=== PATIENT | female | born 1950 | race Caucasian/White ===

== ENCOUNTER 2024-07-17 18:48 | Emergency (ER) | payer MEDICARE, OTHER, SELFPAY ==
[2024-07-17] VITALS (11 sets, daily range): BP systolic 71–144; BP diastolic 33–74; BMI 40.8
--- NOTE | 2024-07-17 18:56 | ED.GENMED ---
History of Present Illness
General
Chief Complaint: Abdominal Symptoms
Time Seen by Provider: 07/17/24 18:56
History of Present Illness
History of Present Illness:
TIME OF INITIAL ENCOUNTER: 6:58 PM
HPI: Patient came in by ambulance from [facility]. She came in due to left-sided abdominal pain. She was given 25 mcg of fentanyl IV prior to arrival. This is associated with nausea and vomiting without diarrhea. She notes that she has had
a cholecystectomy but is not sure if she has had an appendectomy. She has had bowel obstruction in the past. She did have a colostomy at 1 point which was reversed. She reports having adrenal insufficiency as well. She states she has been to
both [facility] in the past
EXAM:
GENERAL: Chronically ill-appearing
HEENT: Slightly dry oral mucosa
CARDIOVASCULAR: No murmurs, normal heart rate, regular rhythm, No chest wall tenderness
PULMONARY: No respiratory distress, breath sounds are clear and equal
ABDOMEN: Soft with borderline peritoneal signs, moderate left-sided abdominal tenderness
NEUROLOGIC: Fair strength all extremities, no coordination deficits
PSYCHIATRIC: Appropriate mental status, normal insight and judgement
EXTREMITIES: Lymphedema noted to the lower extremities, wound noted to the right distal lower extremity which has been dressed and reportedly was seen by explosive ordnance specialist today and 'looked good'
SKIN: Scattered areas of ecchymosis and skin breakdown
NUMBER AND COMPLEXITY OF PROBLEMS ADDRESSED AT THE ENCOUNTER
� Chronic conditions affecting care: Has had bowel obstructions in the past, had cholecystectomy, adrenal insufficiency, thyroid disease, diabetes insipidus
� Acute Exacerbation and/or Progression of Chronic Illness: This is an acute problem
� Differential Diagnosis includes: Bowel obstruction, mesenteric ischemia, diverticulitis, adrenal insufficiency
AMOUNT AND/OR COMPLEXITY OF DATA TO BE REVIEWED AND ANALYZED
� I performed an independent evaluation of and my interpretation is:
EKG: Sinus 105, right bundle branch block with associated ST abnormality
CT: CT shows evidence of 8 x 12 cm area of free air and stool anterior to the descending colon
X-rays: I personally reviewed x-ray which shows the tip of the nasogastric tube below the diaphragm
Laboratory Studies: White count 8.4, hemoglobin 11.1, chemistries unremarkable but lactic is 2.3, lipase is normal
Other:
� Review of other/old records: No old records available for review in [facility]
� Clinical information was obtained by an independent historian: I spoke to friend at bedside
� Prescriptions/Medications Considered but not given:
� Further testing considered but not performed:
RISK OF COMPLICATIONS AND/OR MORBIDITY OR MORTALITY OF PATIENT MANAGEMENT
� Social determinants of health affecting care: Resides at [facility]
� Discussion with other providers: See below
� Escalation of care including admission/observation vs risk of discharge considered: The patient initially had systolics in the low 100 range but shortly after arrival without intervention her systolics were in the 70s. As she
reports a history of adrenal insufficiency, I have ordered 100 mg of hydrocortisone in addition to saline. Will also treat pain with narcotic analgesia and give Zofran.
ANY OTHER UPDATES:
I spoke to Dr. Wilson upon my initial evaluation of the CT report. Dr. Wilson recommended transfer to [facility]. I spoke to Dr. Siegel at [facility] who does not accept in transfer without a bedside evaluation by Dr. Wilson. Dr. Wilson
recommended transfer to [place]. Dr. Radha weber at [facility] accepts to his service.
Patient's BP has improved after hydrocortisone was given. Also planning to place NG tube in addition to additional fluids and Zosyn.
I personally placed the NG tube after the nurses were unable to successfully pass the tube. Tubing is noted to extend below the diaphragm however there was not significant output. There was not significant contents in the stomach on CT imaging.
12 AM: Still no beds available at [facility]
1:15 AM: Patient transported to [facility]
Phy Exam
Physical Exam
Physical Exam:
See HPI
Course
Orders/Labs/Results
Orders:
Orders
04/16/25 18:56
Electrocardiogram (*1) Urgent
Reason for Study: Fatigue / Weakness
EKG- Treatment ONCE
07/17/24 19:04
Hydrocortisone Sod Succinate [Solu-Cortef] 100 mg IV NOW STA
07/17/24 19:05
CT Abd/pelvis W Iv Cont Urgent
Comment:
Reason For Exam: L abd pain; prior bowel obstruction
07/17/24 19:06
0.9% Sodium Chloride 1000 ml [Nss] 1,000 ml IV BOLUS
HYDROmorphone [Dilaudid] 0.5 mg IV NOW STA
Ondansetron Injectable [Zofran] 4 mg IV NOW STA
07/17/24 19:32
Complete Blood Count/With Diff Urgent
Comprehensive Metabolic Panel Urgent
Cortisol, Random Urgent
Free T4 Urgent
Lactic Acid Urgent
Lipase Urgent
Manual Differential Urgent
TSH Reflex To Free T4 Urgent
Blood Culture Q30M
NANCY Source: Blood/Venous
Specimen Description:
07/17/24 20:04
Blood Culture Q30M
NANCY Source: Blood/Venous
Specimen Description:
07/17/24 21:41
Ondansetron Injectable [Zofran] 4 mg IV NOW STA
07/17/24 21:42
Furosemide [Lasix] 20 mg IV NOW STA
07/17/24 22:32
NG Tube [GI tube insertion- Treatment] ONCE
Piperacillin/Tazo 3.375 Gram [Zosyn] 3.375 gram in 50 ml IV NOW
07/17/24 22:33
0.9% Sodium Chloride 1000 ml [Nss] 1,000 ml IV BOLUS
07/17/24 23:31
Lidocaine 2% [Lidocaine Uro-Jet 2%] 1 syringe .ROUTE .STK-MED ONE
07/17/24 23:48
CR Chest Portable - 1 View Urgent
Comment:
Reason For Exam: s/p NG tube insertion
Reason Study Needs to be Portable: Unable to Transport
07/18/24 00:03
HYDROmorphone [Dilaudid] 0.5 mg IV NOW STA
Prochlorperazine [Compazine] 10 mg IV NOW STA
CR Chest Portable - 1 View Urgent
Comment:
Reason For Exam: NG tube insertion
Reason Study Needs to be Portable: Unable to Transport
Abnormal Lab Results
07/17/24
19:32
Hgb 11.1 L g/dL
(12.0-16.0)
Hct 36.5 L %
(37.0-47.0)
MCV 79.2 L fL
(81.0-99.0)
MCH 24.1 L pg
(27.0-31.0)
MCHC 30.4 L g/dL
(33.0-37.0)
RDW 18.8 H %
(11.5-14.5)
Band Neutrophils 4 H %
(0-3)
Lactic Acid 2.3 H mmol/L
(0.7-2.0)
Total Protein 5.6 L g/dl
(6.3-8.2)
TSH (Reflex) 0.03 L uIU/ml
(0.47-4.68)
07/17/24 19:32
07/17/24 19:32
Vital Signs
Initial and Last Documented VS:
Initial Vital Signs
Temp
37.1 C
07/17/24 18:50
Last Documented Vital Signs
Temp Pulse Resp BP Pulse Ox
37.1 C 124 19 91/61 97
07/17/24 18:50 07/18/24 01:00 07/18/24 01:00 07/18/24 01:00 07/18/24 00:15
*Critical Care Note
Total Time (30-74mins, 75-104mins- exclusive of procedures): 45min
comment:
The patient was found to have a bowel perforation. She was emergently given IV fluids and aggressive antibiotics. Multiple reassessments. I spoke to several surgeons to help arrange definitive care. Heart rate has remained elevated. Blood
pressure transiently low but improved with fluids and hydrocortisone.
ED Attending Note
-
Portions of this chart may have been created with voice recognition software.� Occasional wrong word or��sound alike� substitutions may have occurred due to the inherent limitations of voice recognition software.
Discharge Plan
Departure
Patient Disposition: [facility]
Date of Disposition: 07/17/24
Time of Disposition: 23:15
Discharge Problem:
Bowel perforation
Prescriptions:
No Action
fluticasone propion-salmeterol 250-50 mcg/dose Blister With Device
1 inh INHALATION R BID
acetaminophen 325 mg Tablet
650 mg PO Q4HPRN PRN (Reason: mild pain)
prednisone 10 mg Tablet
10 mg PO DAILY
polyethylene glycol 3350 [GlycoLax] 17 gram Powder In Packet
17 g PO DAILY
levalbuterol HCl 0.63 mg/3 mL Solution For Nebulization
0.63 mg INHALATION R Q6HPRN PRN (Reason: sob)
famotidine 40 mg Tablet
40 mg PO DAILY
omeprazole 40 mg Capsule,Delayed Release(Dr/Ec)
40 mg PO BID
ondansetron 8 mg Tablet,Disintegrating
8 mg PO Q8HPRN PRN (Reason: nausea)
hydrocortisone sod succinate [Solu-Cortef] 100 mg Recon Soln
100 mg IM DAILYPRN PRN (Reason: adrenal insufficiency)
magnesium hydroxide [Milk of Magnesia] 400 mg/5 mL Suspension
30 ml PO DAILYPRN PRN (Reason: 9 shifts no bm)
diltiazem HCl 120 mg Capsule,Extended Release 24hr
120 mg PO DAILY
bisacodyl [Dulcolax (bisacodyl)] 10 mg Suppository
10 mg NJ DAILYPRN PRN (Reason: after 12 shifts no bm)
levothyroxine 125 mcg Tablet
125 mcg PO DAILY
buspirone 10 mg Tablet
10 mg PO TID
calcium carbonate [Calcium Antacid] 200 mg calcium (500 mg) Tablet,Chewable
400 mg PO Q6HPRN PRN (Reason: indigestion)
Fleet Enema 19-7 gram/118 mL Enema
118 ml NJ DAILYPRN PRN (Reason: 4th day no bm)
montelukast 10 mg Tablet
10 mg PO HS
epinephrine 0.3 mg/0.3 mL Auto-Injector
0.3 mg IM DAILYPRN PRN (Reason: honeybee allergy)
fluticasone propionate [Flonase] 50 mcg/actuation Points,Suspension
2 spray INTRANASAL DAILY
clotrimazole 1 % Cream
1 applic TOPICAL DAILY
desmopressin 0.1 mg Tablet
0.05 mg PO HS
desmopressin 0.1 mg Tablet
0.05 mg PO DAILYPRN PRN (Reason: excessive urination)
escitalopram oxalate 10 mg Tablet
10 mg PO DAILY
metoprolol tartrate 25 mg Tablet
12.5 mg PO BID
Triple Antibiotic 3.5-400-5,000 [id number] Ointment In Packet
1 applic TOPICAL DAILY
Incruse Ellipta 62.5 mcg/actuation Blister With Device
1 inh INHALATION R DAILY
balsam quique-castor oil [Venelex] Ointment
1 applic TOPICAL BID
Referrals:
Geronimo Denis MD [Family Provider] -
Hospital Transfer
Other hospital: [facility]
I certify that the patient requires transfer: Yes
Discussed case with accepting physician: Dr. Garcia
Reason for transfer: higher level of care
Interventions
Interventions:
*Risk Screen - Suicide Last Done: 07/17/24 18:53
*General Assessment Last Done: 07/17/24 18:53
*Neglect/Abuse Screening Last Done: 07/17/24 18:53
*ED- Fall Risk Assessment Last Done: 07/17/24 18:53
*ED COVID-19 Vaccine History Last Done: 07/17/24 18:53
*Nursing Disposition Last Done: 07/18/24 01:26
UN-Ublokd-[id number] Assessment Last Done: 07/17/24 19:00
Discharge Date and Time
Discharge Date/Time: 07/18/24 01:27
Print Language: PASHTO
[2024-07-17] MEDS: NSS 1000 IV ×2 (19:37→22:39)
[2024-07-17] MEDS: SOLU-CORTEF 100 MG IV (19:38)
[2024-07-17] MEDS: DILAUDID 0.5 MG IV (19:39)
[2024-07-17] MEDS: ZOFRAN 4 MG IV ×2 (19:40→21:55)
[2024-07-17 19:50] LABS: Hematocrit 36.5 % (37.0-47.0); Hemoglobin 11.1 g/dL (12.0-16.0); Mean Corp Hgb Conc. 30.4 g/dL (33.0-37.0); Mean Corpuscular Hgb 24.1 pg (27.0-31.0); Mean Corpuscular Volume 79.2 fL (81.0-99.0); Mean Platelet Volume 9.8 fL (7.4-10.4); Platelet Count 256 10^3/uL (130-400); Red Blood Cell Count 4.61 10^6/uL (4.20-5.40); Red Cell Dist. Width 18.8 % (11.5-14.5); White Blood Cell Count 8.4 10^3/uL (4.8-10.8)
[2024-07-17 20:00] LABS: Lactic Acid 2.3 mmol/L (0.7-2.0)
[2024-07-17 20:04] LABS: ALT (SGPT) 24 U/L (0-35); AST (SGOT) 23 U/L (14-36); Albumin 3.5 g/dl (3.5-5.0); Alkaline Phosphatase 80 U/L (38-126); Blood Urea Nitrogen 13 mg/dl (7-17); Calcium 9.1 mg/dl (8.4-10.2); Carbon Dioxide 25 mmol/L (22-30); Chloride 103 mmol/L (98-107); Estimated Creatinine Clearance 88 ml/min; Glucose 94 mg/dl (70-99); Potassium 3.7 mmol/L (3.5-5.1); Sodium 137 mmol/L (135-145); Total Bilirubin 0.7 mg/dl (0.2-1.3); Total Protein 5.6 g/dl (6.3-8.2); eGFR > 60.00
[2024-07-17 20:05] LABS: Lipase 51 U/L (23-300)
[2024-07-17 20:32] LABS: Cortisol, Random 4.5 ug/dl; TSH Reflex To Free T4 0.03 uIU/ml (0.47-4.68)
[2024-07-17 21:01] LABS: Free T4 0.91 ng/dl (0.78-2.19)
[2024-07-17 21:09] LABS: Absolute Neutrophils -Man Diff 5.2 10^3/uL (1.4-6.5); Atypical Lymphocytes 4 %; Band Neutrophils 4 % (0-3); Eosinophils 2 % (0-6); Lymphocytes 24 % (20-51); Metamyelocytes 3 % (-); Monocytes 5 % (2-9); Segmented Neutrophils 58 % (42-75)
[2024-07-17 21:10] LABS: Normal RBC Morphology Yes; Platelets Checked Yes; Total Cells Counted 100
[2024-07-17] MEDS: ZOSYN 50 IV (22:40)
[2024-07-18 00:02] VITALS: BP 119/75
[2024-07-18] MEDS: COMPAZINE 10 MG IV (00:06)
[2024-07-18] MEDS: DILAUDID 0.5 MG IV (00:06)
[2024-07-18 00:30] VITALS: BP 82/58
[2024-07-18 01:00] VITALS: BP 91/61
== END 2024-07-18 01:27 | disposition short-term general hospital (02) ==
LOC: EMR 18:48
PROVIDERS: EMERGENCY PHYSICIAN Emergency Medicine; FAMILY PHYSICIAN Internal Medicine
DX: K63.1 Perforation of intestine (nontraumatic) (principal)
CPT/HCPCS: 99291; 96365; 96375 ×4; 96361; 96376 ×2; 71045; 74177; 80053; 82533; 83605; 83690; 84439; 84443; 85025; 87040; 93005; Q9967